=== PATIENT | female | born 1940 | race Caucasian/White ===

== ENCOUNTER 2017-10-11 09:16 | Emergency (ER) | payer MEDICARE ==
[~2017-10-11] VITALS: Ht 157.5 cm; Wt 77.1 kg
[2017-10-11] MEDS ORDERED: SODIUM CHLORIDE 0.9% 1,000 ML IV ONE (10:09)
[2017-10-11] MEDS ORDERED: PROMETHAZINE HCL 25 MG/ML 1ML IV PRN (10:15)
[2017-10-11] MEDS ORDERED: KETOROLAC TROMETH 30 MG/ML 1ML VIAL IV ONE (10:15)
[2017-10-11 10:55] LABS: Basophils # (auto) 0 uL; Basophils % (auto) 0.7 % (0.0-2.0); Eosinophils # (auto) 0.4 uL; Eosinophils % (auto) 6.9 % (0.0-7.0); Hematocrit 40.6 % (36.0-46.0); Hemoglobin 13.5 g/dL (12.2-16.2); Lymphocytes # (auto) 1.2 uL; Lymphocytes % (auto) 19.8 % (10.0-50.0); Mean Corpuscular Hemoglobin 30.8 pg (28.0-32.0); Mean Corpuscular Hgb Conc. 33.3 g/dL (32.0-36.0); Mean Corpuscular Volume 92.5 fL (80.0-100.0); Mean Platelet Volume 7.1 fL (6.9-10.8); Monocytes # (auto) 0.7 uL; Monocytes % (auto) 10.7 % (0.0-12.0); Neutrophils # (auto) 3.8 uL; Neutrophils % (auto) 61.9 % (37.0-80.0); Nucleated Red Blood Cells % 0.1 %; Platelet Count (auto) 283 10^3/uL (140-450); Red Cell Distribution Width 13.2 % (11.8-14.3); White Blood Cell 6.2 10^3/uL (4.4-10.8)
[2017-10-11 11:20] LABS: Albumin 3.6 g/dL (3.4-5.0); BUN/Creatinine Ratio 21.1; Bilirubin, Total 0.5 mg/dL (0.2-1.0); Calcium 8.8 mg/dL (8.5-10.1); Magnesium 2.5 mg/dL (1.6-2.6); Potassium 3.7 mmol/L (3.5-5.1); Total Protein 6.9 g/dL (6.4-8.2)
[2017-10-11 11:23] LABS: Urine Bilirubin Negative (Negative); Urine Blood Negative /uL (Negative); Urine Color Yellow (Yellow); Urine Glucose Normal (Normal); Urine Ketone Negative (Negative); Urine Mucus FEW (None Seen); Urine Nitrite Negative (Negative); Urine RBC <1 /hpf (0 - 4); Urine Squamous Epithelial Cell FEW /hpf (<5); Urine Urobilinogen Normal (Negative); Urine pH 6.5 (5.0-8.0)
[2017-10-11 12:31] VITALS: BP 127/82
[2017-10-11] MEDS ORDERED: cefTRIAXone 1GM/50ML D5W 50 ML IV ONE (12:45)
== END 2017-10-11 12:51 | disposition home or self-care (01) ==
LOC: ER 09:16
DX: N39.0 Urinary tract infection, site not specified (principal); G43.909 Migraine, unspecified, not intractable, without status migrainosus
CPT/HCPCS: 36415; 71020; 74176; 80053; 81001; 83690; 83735; 84443; 85025; 93005; 96361; 96374; 96375; 99284; J1885; J2550; J7030

== ENCOUNTER 2019-01-09 08:31 | Emergency (ER) | payer MEDICARE, OTHER ==
[~2019-01-09] VITALS: Ht 157.5 cm; Wt 70.8 kg
[2019-01-09 10:31] LABS: Basophils # (auto) 0 uL; Basophils % (auto) 0.3 % (0.0-2.0); Eosinophils # (auto) 0 uL; Eosinophils % (auto) 0.4 % (0.0-7.0); Hematocrit 41.6 % (36.0-46.0); Hemoglobin 13.9 g/dL (12.2-16.2); Lymphocytes # (auto) 0.8 uL; Lymphocytes % (auto) 9.4 % (10.0-50.0); Mean Corpuscular Hemoglobin 31.6 pg (28.0-32.0); Mean Corpuscular Hgb Conc. 33.5 g/dL (32.0-36.0); Mean Corpuscular Volume 94.5 fL (80.0-100.0); Monocytes # (auto) 0.6 uL; Monocytes % (auto) 7.1 % (0.0-12.0); Neutrophils # (auto) 6.7 uL; Neutrophils % (auto) 82.8 % (37.0-80.0); Nucleated Red Blood Cells % 0.1 %; Platelet Count (auto) 245 10^3/uL (140-450); Red Cell Distribution Width 13.5 % (11.8-14.3)
[2019-01-09 11:01] LABS: Albumin 3.6 g/dL (3.4-5.0); Anion Gap 4 (5-15); Blood Urea Nitrogen 16 mg/dL (7-18); Calcium 8.8 mg/dL (8.5-10.1); Carbon Dioxide 29 mmol/L (21-32); Chloride 108 mmol/L (98-107); Glucose 115 mg/dL (74-106); Potassium 4.2 mmol/L (3.5-5.1); Sodium 141 mmol/L (136-145)
[2019-01-09 11:07] LABS: Alanine Aminotransferase 18 U/L (13-56); Alkaline Phosphatase 89 U/L (45-117); Aspartate Aminotransferase 17 U/L (15-37); BUN/Creatinine Ratio 24.6; Bilirubin, Total 0.3 mg/dL (0.2-1.0); GFR African American 113 mL/min; GFR Non-African American 94 mL/min; Total Protein 6.8 g/dL (6.4-8.2)
[2019-01-09] MEDS ORDERED: SODIUM CHLORIDE 0.9% 1,000 ML IV ONE (13:54)
[2019-01-09 16:45] VITALS: BP 140/89
[2019-01-09 16:50] LABS: Urine Bacteria FEW /hpf (None Seen); Urine Blood Negative /uL (Negative); Urine WBC 2 /hpf (0 - 5)
== END 2019-01-09 17:00 | disposition home or self-care (01) ==
LOC: EDBD 08:31 → ER 08:31
DX: F41.0 Panic disorder [episodic paroxysmal anxiety] (principal); G43.909 Migraine, unspecified, not intractable, without status migrainosus
CPT/HCPCS: 36415; 70450; 71046; 80053; 81001; 83735; 84443; 84484; 85025; 93005

== ENCOUNTER 2021-11-27 09:30 | Inpatient (IN) | payer OTHER ==
[~2021-11-27] VITALS: Ht 157.5 cm; Wt 60.8 kg
[2021-11-27 10:52] LABS: Basophils # (auto) 0 10 ^3/uL (0-0.2); Eosinophils # (auto) 0 10 ^3/uL (0-0.8); Eosinophils % (auto) 0.7 % (0.0-7.0); Hematocrit 39.3 % (36.0-46.0); Hemoglobin 13.5 g/dL (12.2-16.2); Lymphocytes # (auto) 0.4 10 ^3/uL (0.4-5.4); Lymphocytes % (auto) 9.3 % (10.0-50.0); Mean Corpuscular Hemoglobin 32.1 pg (28.0-32.0); Mean Corpuscular Hgb Conc. 34.3 g/dL (32.0-36.0); Mean Corpuscular Volume 93.6 fL (80.0-100.0); Monocytes # (auto) 0.7 10 ^3/uL (0-1.3); Monocytes % (auto) 15.8 % (0.0-12.0); Neutrophils # (auto) 3.2 10 ^3/uL (1.6-8.6); Neutrophils % (auto) 73.2 % (37.0-80.0); Nucleated Red Blood Cells % 0.1 %; Red Cell Distribution Width 13.5 % (11.8-14.3); White Blood Cell 4.4 10^3/uL (4.4-10.8)
[2021-11-27 11:12] LABS: Albumin 3.4 g/dL (3.4-5.0); Calcium 8.1 mg/dL (8.5-10.1); Potassium 3.3 mmol/L (3.5-5.1)
[2021-11-27] MEDS ORDERED: HYDROmorphone HCL 2 MG/ML VL IV ONE (11:15)
[2021-11-27] MEDS ORDERED: ONDANSETRON HCL 4 MG/2 ML VIAL IV ONE (11:15)
[2021-11-27 11:31] LABS: BUN/Creatinine Ratio 29.8; Bilirubin, Total 0.2 mg/dL (0.2-1.0); Total Protein 6.6 g/dL (6.4-8.2)
[2021-11-27 14:29] LABS: Urine Bacteria FEW /hpf (None Seen); Urine Blood Negative /uL (Negative); Urine WBC 5 /hpf (0 - 5)
[2021-11-27] MEDS ORDERED: ACETAMINOPHEN 500 MG TAB PO ONE (16:30)
[2021-11-27] MEDS ORDERED: SODIUM CHLORIDE 0.9% 1,000 ML IV ONE (16:45)
[2021-11-27] MEDS ORDERED: LORazepam 2MG/ML-1ML VIAL IM PRN ×2 (19:15→21:00)
[2021-11-27] MEDS ORDERED: LORazepam 2MG/ML-1ML VIAL IV PRN (19:15)
[2021-11-27 19:47] LABS: Folate (Folic Acid) 12.12 ng/mL (5.38-24)
[2021-11-27] MEDS ORDERED: FOLIC ACID 1 MG, MULTIPLE VITAMIN 10 ML, MAGNESIUM SULF SDV 50% 8 MEQ, THIAMINE INJ 100... INJ SCH ×5 (20:49)
[2021-11-27 23:00] VITALS: BP 108/64
[2021-11-28] MEDS: ACETAMINOPHEN 325 MG TAB PO PRN ×2 (00:58→11:46)
[2021-11-28 05:00] VITALS: BP 114/56
[2021-11-28 06:18] LABS: Calcium 7.9 mg/dL (8.5-10.1); Magnesium 2.9 mg/dL (1.6-2.6); Potassium 3.9 mmol/L (3.5-5.1)
[2021-11-28 06:20] LABS: BUN/Creatinine Ratio 39.3
[2021-11-28 08:37] VITALS: BP 99/57
[2021-11-28] MEDS: CYANOCOBALAMIN (B-12) 1000 MCG/1 ML VIAL IM SCH (11:46)
[2021-11-28] MEDS: FOLIC ACID 1 MG, MULTIPLE VITAMIN 10 ML, THIAMINE INJ 100 MG in SODIUM CHLORIDE 0.9% 1,... INJ SCH (11:46)
[2021-11-28 13:10] VITALS: BP 120/71
[2021-11-28 17:18] VITALS: BP 118/70
[2021-11-28] MEDS ORDERED: CYA100I IM (19:41)
[2021-11-28 22:00] VITALS: BP 124/76
[2021-11-29 05:00] VITALS: BP_SYST 133; BP_SYST 152; BP_DIAS 69; BP_DIAS 97
[2021-11-29] MEDS: ACETAMINOPHEN 325 MG TAB PO PRN (05:20)
[2021-11-29] MEDS: CYANOCOBALAMIN (B-12) 1000 MCG/1 ML VIAL IM SCH (08:31)
[2021-11-29 08:43] VITALS: BP 149/68
[2021-11-29] MEDS: FOLIC ACID 1 MG, MULTIPLE VITAMIN 10 ML, THIAMINE INJ 100 MG in SODIUM CHLORIDE 0.9% 1,... INJ SCH (12:39)
[2021-11-29 13:00] VITALS: BP 145/80
== END 2021-11-29 16:48 | disposition home or self-care (01) | DRG 312 ==
LOC: EDBD 09:30 → ER 09:30 → TELE 16:40 → TELE-CENTR 22:51
PROVIDERS: ADMIT Internal Medicine; ATTEND Internal Medicine
DX: R55 Syncope and collapse (principal); G93.41 Metabolic encephalopathy; E53.8 Deficiency of other specified B group vitamins; M16.10 Unilateral primary osteoarthritis, unspecified hip; M25.551 Pain in right hip; W18.39XA Other fall on same level, initial encounter; F03.90 Unspecified dementia, unspecified severity, without behavioral disturbance, psychotic disturbance, mood disturbance, and anxiety; Z60.2 Problems related to living alone; Y93.01 Activity, walking, marching and hiking; Z20.822 Contact with and (suspected) exposure to COVID-19; Z81.8 Family history of other mental and behavioral disorders; Z90.49 Acquired absence of other specified parts of digestive tract; Z87.891 Personal history of nicotine dependence; Y92.098 Other place in other non-institutional residence as the place of occurrence of the external cause; Y99.8 Other external cause status; Z91.81 History of falling
CPT/HCPCS: 36415; 70450; 70551; 71045; 72192; 80048; 80053; 81001; 82607; 82746; 83735; 84443; 84484; 85025; 87426; 93005; 93306; 95819; 96361; 96374; 96375; 97163; G0378

== ENCOUNTER 2022-02-19 17:24 | Inpatient (IN) | payer OTHER ==
[~2022-02-19] VITALS: Ht 160 cm; Wt 66.3 kg
[~2022-02-19 17:24] MED LIST: CYA100I IM
[2022-02-19 19:58] LABS: Basophils # (auto) 0 10 ^3/uL (0-0.2); Basophils % (auto) 0.8 % (0.0-2.0); Eosinophils # (auto) 0.1 10 ^3/uL (0-0.8); Hematocrit 41.3 % (36.0-46.0); Hemoglobin 14.2 g/dL (12.2-16.2); Lymphocytes # (auto) 1.2 10 ^3/uL (0.4-5.4); Lymphocytes % (auto) 19.2 % (10.0-50.0); Mean Corpuscular Hemoglobin 31.3 pg (28.0-32.0); Mean Corpuscular Hgb Conc. 34.3 g/dL (32.0-36.0); Mean Corpuscular Volume 91.1 fL (80.0-100.0); Monocytes # (auto) 0.8 10 ^3/uL (0-1.3); Monocytes % (auto) 13.6 % (0.0-12.0); Neutrophils # (auto) 3.9 10 ^3/uL (1.6-8.6); Neutrophils % (auto) 64.4 % (37.0-80.0); Nucleated Red Blood Cells % 0.1 %; Red Blood Cells 4.53 10^6/uL (4.0-5.20); Red Cell Distribution Width 13.2 % (11.8-14.3); White Blood Cell 6.1 10^3/uL (4.4-10.8)
[2022-02-19 20:15] LABS: Albumin 3.4 g/dL (3.4-5.0); Calcium 8.8 mg/dL (8.5-10.1); Magnesium 2.4 mg/dL (1.6-2.6); Potassium 4.1 mmol/L (3.5-5.1)
[2022-02-19 20:18] LABS: BUN/Creatinine Ratio 28.6
[2022-02-19 20:25] LABS: Bilirubin, Total 0.3 mg/dL (0.2-1.0); Total Protein 6.5 g/dL (6.4-8.2)
[2022-02-19] MEDS ORDERED: ASPirin 325 MG TAB PO ONE (21:00)
[2022-02-19 21:06] LABS: Urine Bacteria NONE SEEN /hpf (None Seen); Urine Blood Negative /uL (Negative); Urine Specific Gravity 1.026 (1.001-1.035); Urine WBC 22 /hpf (0 - 5)
[2022-02-19] MEDS ORDERED: DOCUSATE SOD 100 MG CAP PO PRN (23:15)
[2022-02-19] MEDS ORDERED: MORPHINE SULFATE INJECTION 2 MG/ML SYRG IV PRN (23:15)
[2022-02-19] MEDS ORDERED: ONDANSETRON HCL 4 MG/2 ML VIAL IV PRN (23:15)
[2022-02-19] MEDS ORDERED: SODIUM CHLORIDE 0.9% 1,000 ML IV ONE (23:15)
[2022-02-19] MEDS ORDERED: NITROGLYCERIN 0.4 MG SL TAB SL PRN (23:15)
[2022-02-20] VITALS (7 sets, daily range): BP systolic 111–145; BP diastolic 70–84
[2022-02-20 08:21] LABS: Basophils # (auto) 0.1 10 ^3/uL (0-0.2); Basophils % (auto) 1.3 % (0.0-2.0); Eosinophils # (auto) 0.2 10 ^3/uL (0-0.8); Eosinophils % (auto) 3.4 % (0.0-7.0); Hematocrit 39.4 % (36.0-46.0); Hemoglobin 13.7 g/dL (12.2-16.2); Lymphocytes % (auto) 21.1 % (10.0-50.0); Mean Corpuscular Hemoglobin 31.5 pg (28.0-32.0); Mean Corpuscular Hgb Conc. 34.7 g/dL (32.0-36.0); Mean Corpuscular Volume 90.5 fL (80.0-100.0); Monocytes # (auto) 0.7 10 ^3/uL (0-1.3); Monocytes % (auto) 13.2 % (0.0-12.0); Red Blood Cells 4.35 10^6/uL (4.0-5.20); Red Cell Distribution Width 13.1 % (11.8-14.3)
[2022-02-20 08:46] LABS: BUN/Creatinine Ratio 26.4; Calcium 8.7 mg/dL (8.5-10.1); Potassium 3.9 mmol/L (3.5-5.1)
[2022-02-20] MEDS: ASPirin-EC 81 mg tab PO SCH (09:35)
[2022-02-20] MEDS: ACETAMINOPHEN 325 MG TAB PO PRN (16:45)
[2022-02-21 05:00] VITALS: BP 113/72
[2022-02-21] MEDS: ACETAMINOPHEN 325 MG TAB PO PRN (06:23)
[2022-02-21 09:00] VITALS: BP 113/62
[2022-02-21] MEDS: ASPirin-EC 81 mg tab PO SCH (09:16)
[2022-02-21 12:00] VITALS: BP 124/67
== END 2022-02-21 16:05 | disposition home health service (06) | DRG 392 ==
LOC: ER 17:24 → TELE 23:09 → TELE-WESTW 02-20 01:37
PROVIDERS: ADMIT Hospitalist; ATTEND Hospitalist
DX: K57.30 Diverticulosis of large intestine without perforation or abscess without bleeding (principal); K44.9 Diaphragmatic hernia without obstruction or gangrene; R09.02 Hypoxemia; Z20.822 Contact with and (suspected) exposure to COVID-19; F03.90 Unspecified dementia, unspecified severity, without behavioral disturbance, psychotic disturbance, mood disturbance, and anxiety; Z82.49 Family history of ischemic heart disease and other diseases of the circulatory system; Z90.49 Acquired absence of other specified parts of digestive tract
CPT/HCPCS: 36415; 70450; 71045; 74176; 80048; 80053; 81001; 83735; 83880; 84484; 85025; 85379; 93005; 99291; G0378; J2405

== ENCOUNTER 2022-05-29 13:20 | Emergency (ER) | payer OTHER ==
[~2022-05-29] VITALS: Ht 157.5 cm; Wt 58.1 kg
[2022-05-29 14:19] VITALS: BP 127/52
[2022-05-29 14:38] LABS: Urine Bacteria NONE SEEN /hpf (None Seen); Urine Blood TRACE /uL (Negative); Urine Mucus FEW (None Seen); Urine Specific Gravity 1.023 (1.001-1.035); Urine WBC 9 /hpf (0 - 5)
[2022-05-29 15:03] LABS: Basophils # (auto) 0 10 ^3/uL (0-0.2); Basophils % (auto) 0.5 % (0.0-2.0); Eosinophils # (auto) 0.1 10 ^3/uL (0-0.8); Eosinophils % (auto) 0.8 % (0.0-7.0); Hemoglobin 14.7 g/dL (12.2-16.2); Lymphocytes % (auto) 14.2 % (10.0-50.0); Mean Corpuscular Hemoglobin 30.5 pg (28.0-32.0); Mean Corpuscular Hgb Conc. 33.5 g/dL (32.0-36.0); Mean Corpuscular Volume 91.2 fL (80.0-100.0); Monocytes # (auto) 0.7 10 ^3/uL (0-1.3); Monocytes % (auto) 10.3 % (0.0-12.0); Neutrophils # (auto) 5.2 10 ^3/uL (1.6-8.6); Neutrophils % (auto) 74.2 % (37.0-80.0); Red Blood Cells 4.83 10^6/uL (4.0-5.20); Red Cell Distribution Width 14.2 % (11.8-14.3); White Blood Cell 6.9 10^3/uL (4.4-10.8)
[2022-05-29 15:14] LABS: Albumin 3.5 g/dL (3.4-5.0); Calcium 9.2 mg/dL (8.5-10.1)
[2022-05-29 15:18] LABS: BUN/Creatinine Ratio 15.5; Bilirubin, Total 0.6 mg/dL (0.2-1.0); Total Protein 7.3 g/dL (6.4-8.2)
[2022-05-29] MEDS ORDERED: ALUM & MAG HYDROX-SIMETH LIQ(MAALOX) 30 ML PO ONE (15:30)
[2022-05-29] MEDS ORDERED: CEPH-509 PO (19:45)
== END 2022-05-29 21:25 | disposition home or self-care (01) ==
LOC: ER 13:20
DX: N39.0 Urinary tract infection, site not specified (principal); R07.89 Other chest pain; M25.562 Pain in left knee
CPT/HCPCS: 36415; 73562; 74176; 80053; 81001; 83605; 83690; 84484; 85025; 93005

== ENCOUNTER 2022-06-11 12:38 | Inpatient (IN) | payer OTHER ==
[~2022-06-11] VITALS: Ht 157.5 cm; Wt 68.4 kg
[~2022-06-11 12:38] MED LIST changes: +CEPH-509 PO
[2022-06-11 13:41] LABS: Basophils # (auto) 0 10 ^3/uL (0-0.2); Basophils % (auto) 0.7 % (0.0-2.0); Eosinophils # (auto) 0.1 10 ^3/uL (0-0.8); Eosinophils % (auto) 1.5 % (0.0-7.0); Lymphocytes # (auto) 1.1 10 ^3/uL (0.4-5.4); Lymphocytes % (auto) 20.8 % (10.0-50.0); Mean Corpuscular Hgb Conc. 32.5 g/dL (32.0-36.0); Mean Corpuscular Volume 92.3 fL (80.0-100.0); Monocytes # (auto) 0.6 10 ^3/uL (0-1.3); Monocytes % (auto) 11.2 % (0.0-12.0); Neutrophils # (auto) 3.5 10 ^3/uL (1.6-8.6); Neutrophils % (auto) 65.8 % (37.0-80.0); Nucleated Red Blood Cells % 0.2 %; Red Blood Cells 4.65 10^6/uL (4.0-5.20); White Blood Cell 5.4 10^3/uL (4.4-10.8)
[2022-06-11] MEDS ORDERED: CLINDAMYCIN 300MG IV 50 ML IV ONE (13:45)
[2022-06-11] MEDS ORDERED: cefTRIAXone 1GM/50ML D5W 50 ML IV ONE (13:45)
[2022-06-11 13:58] LABS: Albumin 3.5 g/dL (3.4-5.0); BUN/Creatinine Ratio 33.3; Calcium 8.7 mg/dL (8.5-10.1)
[2022-06-11 14:00] LABS: Bilirubin, Total 0.4 mg/dL (0.2-1.0); Total Protein 6.6 g/dL (6.4-8.2)
[2022-06-11 17:55] LABS: Urine Bacteria NONE SEEN /hpf (None Seen); Urine Blood Negative /uL (Negative); Urine Specific Gravity 1.027 (1.001-1.035); Urine WBC 39 /hpf (0 - 5)
[2022-06-11] MEDS ORDERED: IOHEXOL 350 MG/ML 100ML IJ ONE (18:29)
[2022-06-11] MEDS ORDERED: LORazepam 2MG/ML-1ML VIAL IV ONE (19:45)
[2022-06-11] MEDS ORDERED: LORazepam 2MG/ML-1ML VIAL ONE (19:49)
[2022-06-11] MEDS: CLINDAMYCIN 600MG IV 50 ML IV SCH (23:15)
[2022-06-12] MEDS: TEMAZEPAM 15 MG CAP PO PRN ×2 (04:00→22:36)
[2022-06-12 04:10] LABS: Basophils # (auto) 0 10 ^3/uL (0-0.2); Basophils % (auto) 0.6 % (0.0-2.0); Eosinophils # (auto) 0 10 ^3/uL (0-0.8); Eosinophils % (auto) 0.7 % (0.0-7.0); Hematocrit 39.7 % (36.0-46.0); Hemoglobin 13.1 g/dL (12.2-16.2); Lymphocytes % (auto) 14.1 % (10.0-50.0); Mean Corpuscular Hemoglobin 30.1 pg (28.0-32.0); Mean Corpuscular Volume 91.2 fL (80.0-100.0); Monocytes % (auto) 13.9 % (0.0-12.0); Neutrophils % (auto) 70.7 % (37.0-80.0); Red Blood Cells 4.35 10^6/uL (4.0-5.20); Red Cell Distribution Width 14.1 % (11.8-14.3); White Blood Cell 7.1 10^3/uL (4.4-10.8)
[2022-06-12 04:29] LABS: BUN/Creatinine Ratio 23.7; Calcium 8.9 mg/dL (8.5-10.1); Potassium 3.7 mmol/L (3.5-5.1)
[2022-06-12] MEDS: CLINDAMYCIN 600MG IV 50 ML IV SCH (05:54)
[2022-06-12] MEDS ORDERED: PIPERACILLIN-TAZOB 3.375GM 100 ML IV ONE (07:45)
[2022-06-12] MEDS ORDERED: VANCOMYCIN PER PHARMACY 0 MG IV SCH (07:45)
[2022-06-12] MEDS ORDERED: VANCOMYCIN 1GM/250ML 250 ML IV ONE (07:45)
[2022-06-12] MEDS ORDERED: CYANOCOBALAMIN (B-12) 1000 MCG/1 ML VIAL IM ONE (08:15)
[2022-06-12] MEDS ORDERED: cefTRIAXone 1GM/50ML D5W 50 ML IV SCH (09:00)
[2022-06-12] MEDS: CYANOCOBALAMIN (B-12) 1000 MCG/1 ML VIAL IM SCH (09:06)
[2022-06-12] MEDS: ENOXAPARIN SOD 40 MG/0.4 ML SYRINGE SC SCH (09:06)
[2022-06-12] MEDS: PANTOPRAZOLE 40 MG TAB PO SCH (09:06)
[2022-06-12] MEDS: HYDROcodone-ACET 5/325MG TAB PO PRN ×2 (11:10→18:59)
[2022-06-12] MEDS: FOLIC ACID 1 MG, MULTIPLE VITAMIN 10 ML, MAGNESIUM SULF SDV 50% 8 MEQ, THIAMINE INJ 100... INJ SCH ×5 (12:48)
[2022-06-12] MEDS: PIPERACILLIN-TAZOB 3.375GM 100 ML IV SCH ×3 (12:48→23:39)
[2022-06-12] MEDS ORDERED: IBUP100S11 PO (13:58)
[2022-06-12 17:00] VITALS: BP 104/56
[2022-06-12] MEDS: DONEPEZIL HYDROCHLORIDE 5 MG TAB PO SCH (22:30)
[2022-06-13] MEDS: HYDROcodone-ACET 5/325MG TAB PO PRN ×2 (02:45→17:36)
[2022-06-13] MEDS ORDERED: VANCOMYCIN 1GM/250ML 250 ML IV SCH (03:00)
[2022-06-13 05:00] VITALS: BP 123/77
[2022-06-13] MEDS: PIPERACILLIN-TAZOB 3.375GM 100 ML IV SCH ×2 (05:13→14:18)
[2022-06-13 06:07] LABS: RPR Non Reactive (Non Reactive)
[2022-06-13 08:00] VITALS: BP 127/76
[2022-06-13] MEDS: PANTOPRAZOLE 40 MG TAB PO SCH (09:57)
[2022-06-13] MEDS: ENOXAPARIN SOD 40 MG/0.4 ML SYRINGE SC SCH (09:58)
[2022-06-13] MEDS: CYANOCOBALAMIN (B-12) 1000 MCG/1 ML VIAL IM SCH (10:00)
[2022-06-13 12:00] VITALS: BP 128/76
[2022-06-13] MEDS: FOLIC ACID 1 MG, MULTIPLE VITAMIN 10 ML, MAGNESIUM SULF SDV 50% 8 MEQ, THIAMINE INJ 100... INJ SCH ×10 (12:00→18:48)
[2022-06-13 16:00] VITALS: BP 140/81
[2022-06-13] MEDS: DONEPEZIL HYDROCHLORIDE 5 MG TAB PO SCH (22:48)
[2022-06-13] MEDS: VANCOMYCIN 1GM/250ML 250 ML IV SCH (22:49)
[2022-06-14] MEDS: HYDROcodone-ACET 5/325MG TAB PO PRN ×2 (00:01→13:19)
[2022-06-14] MEDS: PIPERACILLIN-TAZOB 3.375GM 100 ML IV SCH ×4 (01:39→20:31)
[2022-06-14] MEDS: TEMAZEPAM 15 MG CAP PO PRN (02:12)
[2022-06-14] MEDS: ACETAMINOPHEN 325 MG TAB PO PRN ×2 (02:12→15:57)
[2022-06-14 05:00] VITALS: BP 131/70
[2022-06-14] MEDS: CYANOCOBALAMIN (B-12) 1000 MCG/1 ML VIAL IM SCH (08:41)
[2022-06-14] MEDS: ENOXAPARIN SOD 40 MG/0.4 ML SYRINGE SC SCH (08:41)
[2022-06-14 09:00] VITALS: BP 140/67
[2022-06-14 13:00] VITALS: BP 148/80
[2022-06-14] MEDS: FOLIC ACID 1 MG, MULTIPLE VITAMIN 10 ML, MAGNESIUM SULF SDV 50% 8 MEQ, THIAMINE INJ 100... INJ SCH ×5 (13:20)
[2022-06-14 17:00] VITALS: BP 128/73
[2022-06-14] MEDS: ONDANSETRON HCL 4 MG/2 ML VIAL IV PRN (18:09)
[2022-06-14] MEDS: VANCOMYCIN 1GM/250ML 250 ML IV SCH (18:09)
[2022-06-14 22:00] VITALS: BP 150/77
[2022-06-14] MEDS: DONEPEZIL HYDROCHLORIDE 5 MG TAB PO SCH (22:03)
[2022-06-15] VITALS (7 sets, daily range): BP systolic 138–166; BP diastolic 79–86
[2022-06-15] MEDS: PIPERACILLIN-TAZOB 3.375GM 100 ML IV SCH ×4 (03:08→20:00)
[2022-06-15] MEDS: VANCOMYCIN 1GM/250ML 250 ML IV SCH (11:27)
[2022-06-15] MEDS: HYDROcodone-ACET 5/325MG TAB PO PRN ×3 (11:34→17:43)
[2022-06-15] MEDS: CYANOCOBALAMIN (B-12) 1000 MCG/1 ML VIAL IM SCH (11:36)
[2022-06-15] MEDS: ENOXAPARIN SOD 40 MG/0.4 ML SYRINGE SC SCH (11:36)
[2022-06-15] MEDS: FOLIC ACID 1 MG, MULTIPLE VITAMIN 10 ML, MAGNESIUM SULF SDV 50% 8 MEQ, THIAMINE INJ 100... INJ SCH ×5 (12:30)
[2022-06-15] MEDS: DONEPEZIL HYDROCHLORIDE 5 MG TAB PO SCH (22:00)
[2022-06-16] MEDS: PIPERACILLIN-TAZOB 3.375GM 100 ML IV SCH ×2 (01:06→08:00)
[2022-06-16] MEDS: ONDANSETRON HCL 4 MG/2 ML VIAL IV PRN (04:25)
[2022-06-16] MEDS: HYDROcodone-ACET 5/325MG TAB PO PRN (04:25)
[2022-06-16 05:00] VITALS: BP 143/72
[2022-06-16] MEDS ORDERED: VANCOMYCIN 1GM/250ML 250 ML IV SCH (06:00)
[2022-06-16 09:00] VITALS: BP 100/57
[2022-06-16] MEDS: CYANOCOBALAMIN (B-12) 1000 MCG/1 ML VIAL IM SCH (09:51)
[2022-06-16] MEDS: ENOXAPARIN SOD 40 MG/0.4 ML SYRINGE SC SCH (09:51)
== END 2022-06-16 12:00 | DRG 603 ==
LOC: ER 12:38 → OVERFLOW 22:50 → WEST WING 06-12 08:18
PROVIDERS: ADMIT Nurse Practitioner; ATTEND Internal Medicine
DX: L03.115 Cellulitis of right lower limb (principal); N30.00 Acute cystitis without hematuria; J43.9 Emphysema, unspecified; F03.90 Unspecified dementia, unspecified severity, without behavioral disturbance, psychotic disturbance, mood disturbance, and anxiety; F10.10 Alcohol abuse, uncomplicated; E66.01 Morbid (severe) obesity due to excess calories; Z68.25 Body mass index [BMI] 25.0-25.9, adult; Z91.81 History of falling; R29.6 Repeated falls; Z90.49 Acquired absence of other specified parts of digestive tract; Z20.822 Contact with and (suspected) exposure to COVID-19; Z71.41 Alcohol abuse counseling and surveillance of alcoholic
CPT/HCPCS: 36415; 71045; 73701; 80048; 80053; 80202; 81001; 82565; 82607; 83605; 83880; 84443; 84484; 85025; 85652; 86141; 86592; 87040; 87077; 87086; 87186; 87205; 93925; 93970; 96365; 96367; 96375; 97163; G0378; J0696; J2405; J2543; J3490

== ENCOUNTER 2022-09-24 21:26 | Inpatient (IN) | payer OTHER ==
[~2022-09-24] VITALS: Ht 157.5 cm; Wt 62.5 kg
[~2022-09-24 21:26] MED LIST changes: +IBUP100S11 PO
[2022-09-25 01:40] VITALS: BP 126/70
[2022-09-25 05:00] VITALS: BP 113/62
[2022-09-25] MEDS ORDERED: ONDANSETRON HCL 4 MG/2 ML VIAL IV PRN (05:15)
[2022-09-25] MEDS ORDERED: ACETAMINOPHEN 325 MG TAB PO PRN (05:15)
[2022-09-25 08:00] VITALS: BP 116/63
[2022-09-25 09:17] LABS: Basophils # (auto) 0 10 ^3/uL (0-0.2); Basophils % (auto) 0.6 % (0.0-2.0); Eosinophils # (auto) 0.1 10 ^3/uL (0-0.8); Eosinophils % (auto) 3.1 % (0.0-7.0); Hemoglobin 13.1 g/dL (12.2-16.2); Lymphocytes # (auto) 1.1 10 ^3/uL (0.4-5.4); Lymphocytes % (auto) 27.1 % (10.0-50.0); Mean Corpuscular Hemoglobin 31.6 pg (28.0-32.0); Mean Corpuscular Hgb Conc. 34.4 g/dL (32.0-36.0); Monocytes # (auto) 0.6 10 ^3/uL (0-1.3); Monocytes % (auto) 14.8 % (0.0-12.0); Neutrophils # (auto) 2.3 10 ^3/uL (1.6-8.6); Neutrophils % (auto) 54.4 % (37.0-80.0); Nucleated Red Blood Cells % 0.2 %; Red Blood Cells 4.13 10^6/uL (4.0-5.20); Red Cell Distribution Width 14.1 % (11.8-14.3); White Blood Cell 4.2 10^3/uL (4.4-10.8)
[2022-09-25 09:30] LABS: Albumin 2.7 g/dL (3.4-5.0); Calcium 8.1 mg/dL (8.5-10.1); Potassium 3.7 mmol/L (3.5-5.1)
[2022-09-25] MEDS: cefTRIAXone 1GM/50ML D5W 50 ML IV SCH (09:30)
[2022-09-25 09:33] LABS: Bilirubin, Total 0.4 mg/dL (0.2-1.0); Total Protein 4.9 g/dL (6.4-8.2)
[2022-09-25] MEDS ORDERED: PANTOPRAZOLE 40 MG TAB PO SCH (10:00)
[2022-09-25] MEDS ORDERED: ACET325T10 PO (10:04)
[2022-09-25] MEDS ORDERED: BISA10SU5 RE (10:05)
[2022-09-25] MEDS ORDERED: SENN1TAB14 PO (10:06)
[2022-09-25] MEDS ORDERED: FOLI1TAB6 PO (10:11)
[2022-09-25] MEDS ORDERED: LORA0.5T20 PO (10:11)
[2022-09-25] MEDS ORDERED: ONDA-144 PO (10:11)
[2022-09-25] MEDS ORDERED: DONE5TAB80 PO (10:11)
[2022-09-25] MEDS ORDERED: HYDR1TAB97 PO (10:11)
[2022-09-25] MEDS ORDERED: TEMA15CA2 PO (10:11)
[2022-09-25] MEDS: ENOXAPARIN SOD 40 MG/0.4 ML SYRINGE SC SCH (10:35)
[2022-09-25 12:00] VITALS: BP 119/73
[2022-09-25 14:47] LABS: Urine Bacteria MANY /hpf (None Seen); Urine WBC 50 /hpf (0 - 5); Urine WBC Clumps PRESENT /hpf (None Seen)
[2022-09-25 15:26] LABS: Urine Specific Gravity 1.005 (1.001-1.035)
[2022-09-25 15:27] LABS: Urine Blood 2+ /uL (Negative)
[2022-09-25 16:00] VITALS: BP 131/85
[2022-09-25] MEDS ORDERED: SENNA 8.6 MG TAB PO PRN (16:30)
[2022-09-25] MEDS ORDERED: HYDROcodone-ACET 5/325MG TAB PO PRN (16:30)
[2022-09-25] MEDS ORDERED: BISACODYL 5 MG EC TAB PO PRN (16:45)
[2022-09-25] MEDS ORDERED: ONDANSETRON ODT 4 MG TAB PO PRN (16:45)
[2022-09-25] MEDS: LORazepam 0.5 MG TAB PO PRN (17:18)
[2022-09-25] MEDS: DONEPEZIL HYDROCHLORIDE 5 MG TAB PO SCH (21:07)
[2022-09-25 22:00] VITALS: BP 126/74
[2022-09-25] MEDS: TEMAZEPAM 15 MG CAP PO PRN (23:57)
[2022-09-26 05:00] VITALS: BP 142/69
[2022-09-26 08:00] VITALS: BP 114/59
[2022-09-26] MEDS: FOLIC ACID 1 MG TAB PO SCH (08:09)
[2022-09-26] MEDS: ENOXAPARIN SOD 40 MG/0.4 ML SYRINGE SC SCH (08:09)
[2022-09-26] MEDS: cefTRIAXone 1GM/50ML D5W 50 ML IV SCH (08:09)
[2022-09-26 09:00] VITALS: BP 114/59
[2022-09-26 13:00] VITALS: BP 122/69
[2022-09-26 16:53] VITALS: BP 116/67
[2022-09-26 20:00] VITALS: BP 125/73
[2022-09-26] MEDS: DONEPEZIL HYDROCHLORIDE 5 MG TAB PO SCH (21:08)
[2022-09-26] MEDS: TEMAZEPAM 15 MG CAP PO PRN (21:08)
[2022-09-27 09:00] VITALS: BP 117/72
[2022-09-27] MEDS: ENOXAPARIN SOD 40 MG/0.4 ML SYRINGE SC SCH (10:06)
[2022-09-27] MEDS: FOLIC ACID 1 MG TAB PO SCH (10:06)
[2022-09-27] MEDS: cefTRIAXone 1GM/50ML D5W 50 ML IV SCH (10:06)
[2022-09-27 13:00] VITALS: BP 120/69
[2022-09-27] MEDS: DONEPEZIL HYDROCHLORIDE 5 MG TAB PO SCH (21:36)
[2022-09-27 22:00] VITALS: BP 130/69
[2022-09-27] MEDS: LORazepam 0.5 MG TAB PO PRN (22:26)
[2022-09-28 05:00] VITALS: BP 135/63
[2022-09-28] MEDS: ENOXAPARIN SOD 40 MG/0.4 ML SYRINGE SC SCH (08:52)
[2022-09-28] MEDS: FOLIC ACID 1 MG TAB PO SCH (08:52)
[2022-09-28] MEDS: cefTRIAXone 1GM/50ML D5W 50 ML IV SCH (08:52)
[2022-09-28 09:00] VITALS: BP 147/73
[2022-09-28] MEDS: LORazepam 0.5 MG TAB PO PRN (10:50)
[2022-09-28 13:00] VITALS: BP 128/59
[2022-09-28] MEDS: DONEPEZIL HYDROCHLORIDE 5 MG TAB PO SCH (21:53)
[2022-09-28] MEDS: TEMAZEPAM 15 MG CAP PO PRN (21:53)
[2022-09-29 05:28] VITALS: BP 119/74
[2022-09-29 09:00] VITALS: BP 120/54
[2022-09-29] MEDS: FOLIC ACID 1 MG TAB PO SCH (09:29)
[2022-09-29] MEDS: cefTRIAXone 1GM/50ML D5W 50 ML IV SCH (09:29)
[2022-09-29] MEDS: ENOXAPARIN SOD 40 MG/0.4 ML SYRINGE SC SCH (09:30)
[2022-09-29 13:00] VITALS: BP 127/62
[2022-09-29 17:00] VITALS: BP 145/66
[2022-09-29] MEDS: LORazepam 0.5 MG TAB PO PRN (18:08)
== END 2022-09-29 19:37 | DRG 689 ==
LOC: TELE-WESTW 09-25 02:42 → WEST WING 09-25 20:49
PROVIDERS: ADMIT Internal Medicine; ATTEND Internal Medicine
DX: N30.00 Acute cystitis without hematuria (principal); G93.41 Metabolic encephalopathy; F03.90 Unspecified dementia, unspecified severity, without behavioral disturbance, psychotic disturbance, mood disturbance, and anxiety; R29.6 Repeated falls; Z20.822 Contact with and (suspected) exposure to COVID-19
CPT/HCPCS: 36415; 80053; 81001; 84484; 85025; 87081; 87426; G0378; J0696